=== PATIENT | female | born 1960 | race Caucasian/White ===

== ENCOUNTER 2024-10-11 17:51 | Emergency (ER) | payer BC, SELFPAY ==
[2024-10-11 17:51] VITALS: BMI 28.2
[2024-10-11 17:54] VITALS: BP 189/102
[2024-10-11 18:16] LABS: Hematocrit 39.3 % (37.0-47.0); Hemoglobin 13.3 g/dL (12.0-16.0); Mean Corp Hgb Conc. 33.8 g/dL (33.0-37.0); Mean Corpuscular Volume 87.7 fL (81.0-99.0); Nucleated Red Blood Cells % 0 %; Platelet Count 295 10^3/uL (130-400); Red Cell Dist. Width 12.2 % (11.5-14.5)
[2024-10-11 18:30] LABS: ALT (SGPT) 19 U/L (0-35); AST (SGOT) 22 U/L (14-36); Albumin 4.8 g/dl (3.5-5.0); Alkaline Phosphatase 79 U/L (38-126); Blood Urea Nitrogen 10 mg/dl (7-17); Calcium 9.2 mg/dl (8.4-10.2); Carbon Dioxide 25 mmol/L (22-30); Chloride 106 mmol/L (98-107); Glucose 129 mg/dl (70-99); Lipase 138 U/L (23-300); Potassium 4.1 mmol/L (3.5-5.1); Sodium 137 mmol/L (135-145); Total Protein 7.5 g/dl (6.3-8.2); eGFR > 60.00
[2024-10-11 19:34] VITALS: BP 187/85
[2024-10-11 19:45] LABS: Urine Character Clear (Clear)
--- NOTE | 2024-10-11 19:50 | ED.GENMED ---
History of Present Illness
General
Chief Complaint: Abdominal Pain
Source: patient
Exam Limitations: none
Time Seen by Provider: 10/11/24 19:31
Nursing documentation reviewed up to this point in time: agreed with
History of Present Illness
History of Present Illness:
The patient is a pleasant 64 yr old woman who complains of right sided abdominal pain. Pt reports she noticed it around 9:30am today. pain is described as waxing and waning and associated with nausea. Patient had a normal BM today
Past History
Past History
ED Past Medical History: HTN, Hypothyroidism and Other (ovarian cysts)
ED Past Surgical History: Other (ovarian cyst removal)
Social History
Tobacco: Non-smoker
Personal:
Living: with family
Employment: Employed
Family History
Family History: Other
Review of Systems
Review of Systems
Allergies reviewed?: Yes
All Other Systems: ROS reviewed and negative except as documented in HPI and ROS
Constitutional: Reports no symptoms
EENT: Reports no symptoms
Respiratory: Reports no symptoms
Cardiac: Reports no symptoms
ABD/GI: Reports abdominal pain, nausea and anorexia
: Reports no symptoms
Musculoskeletal: Reports no symptoms
Skin: Reports no symptoms
Neurological: Reports no symptoms
Endocrine: Reports no symptoms
Hematologic/Lymphatic: Reports no symptoms
Psychiatric: Reports no symptoms
Phy Exam
General Physical Exam
General Presentation: well appearing
ENT Exam
ENT Exam: neck supple
Eye Exam
Eye Exam: PERRL
Cardiovascular Exam
Cardiovascular Exam: regular rate/rhythm
Pulmonary Exam
Pulmonary Exam: lungs clear
Gastrointestinal Exam
Gastrointestinal Exam: normal bowel sounds and other (mild R mid and lower R ab tenderness. no guarding. nondistended and soft)
Neurological Exam
Neurological Exam: alert and oriented x3
Musculoskeletal Exam
Musculoskeletal Exam: full ROM
Skin Exam
Skin Exam: normal color
Psychiatric Exam
Psychiatric Exam: normal mood/affect
Course
Orders/Labs/Results
Orders:
Orders
10/11/24 18:05
Complete Blood Count/With Diff Urgent
Comprehensive Metabolic Panel Urgent
Lipase Urgent
10/11/24 19:40
Urinalysis Reflex To Culture Urgent
Date Specimen was Collected: 10/11/24
Time Specimen was Collected: 19:37
Urine Microscopic Reflex Cult Urgent
Urine Culture Urgent
LUCHO Source: U
Specimen Description:
Date Specimen was Collected: 10/11/24
Time Specimen was Collected: 19:37
10/11/24 19:50
CT Abd/pelvis W Iv Cont Urgent
Comment:
Reason For Exam: R sided abdominal pain
10/11/24 21:27
Amoxicillin 875 mg/Clav 125 mg [Augmentin 875 mg/125 mg] 1 tablet PO NOW STA
Nursing to Place Non Medication Order As Directed
Physician Order: please repeat Blood pressure
10/11/24 21:29
Ketorolac [Toradol] 30 mg IV NOW STA
Abnormal Lab Results
10/11/24 10/11/24
18:05 19:40
Absolute Neuts (auto) 7.5 H 10^3/uL
(1.4-6.5)
Absolute Lymphs (auto) 1.0 L 10^3/uL
(1.2-3.4)
Neutrophils % 83.4 H %
(42.2-75.2)
Lymphocytes % 11.3 L %
(20.5-51.1)
Glucose 129 H mg/dl
(70-99)
Ur Occult Blood Reflex 2+ A
(Negative)
Leukocyte Esterase Rfl 3+ A
(Negative)
Urine RBC 3-6 A /HPF
(0-2)
Urine WBC (Reflex) 16-20 A /HPF
(0-5)
Urine Bacteria (Reflex) Few A
(Negative)
Urine Albumin (Reflex) 1+ A
(Neg - Trace)
10/11/24 18:05
10/11/24 18:05
Vital Signs
Initial and Last Documented VS:
Initial Vital Signs
Temp Pulse Resp BP Pulse Ox
98.4 F 95 18 189/102 97
10/11/24 17:54 10/11/24 17:54 10/11/24 17:54 10/11/24 17:54 10/11/24 17:54
Last Documented Vital Signs
Temp Pulse Resp BP Pulse Ox
98.2 F 76 16 144/87 99
10/11/24 20:00 10/11/24 21:36 10/11/24 21:36 10/11/24 21:36 10/11/24 21:36
MDM/Problems Addressed
Differential Diagnosis Includes:
acute appendictis, acute cholecystitis, acute diverticulitis
MDM/Problems Addressed:
pt presents with acute ab pain
Chronic conditions affecting care: HTN
Acute Exacerbation and/or Progression of Chronic Illness:
pt is hypertensive likely due to anxiety. she reports she feels anxious. she has no signs of stroke nor headache. she has no CP or SOB
Acute Exacerbation and/or Progression of Chronic Illness: HTN
*Radiology
Radiology exam reviewed: radiology read reviewed
*Pulse Oximetry
SaO2: 96
Oxygen Mode of Delivery: Room air
Patient hypoxic: no
*EKG
Interpreted by ED Provider?: NA
*Employment Interviewer Interpretation
Rate: Employment Interviewer- N/A
*Critical Care Note
Total Time (30-74mins, 75-104mins- exclusive of procedures): Not Applicable
Data Reviewed
Review of Other/Old Records Reveals: Radiology Studies (pelvic US 2009 does not show any sizeable ovarian cysts)
Source: patient
Patient Management
Social determinants of health affecting care: Living situation and Strong social support
Escalation/DeEscalation of care consider admission/obs:
Given patient's ongoing right sided abdominal tenderness and pain, decision made to treat patient for possible infectious colitis with Augmentin. Additionally, patient encouraged to follow-up with her primary care in about 1 week. There is still
no sign of fever or peritonitis. Patient appears with very well. Overall, patient reports that her pain is better than earlier.
ED Attending Note
-
Portions of this chart may have been created with voice recognition software.� Occasional wrong word or��sound alike� substitutions may have occurred due to the inherent limitations of voice recognition software.
Discharge Plan
Departure
Patient Disposition: Home (Routine Discharge)
Date of Disposition: 10/11/24
Time of Disposition: 21:27
Patient with high blood pressure during this ER visit?: Yes
Condition: Good
Covid-19: Not Applicable
Discharge Problem:
Colitis
Instructions: Colitis, BLOOD PRESSURE
Prescriptions:
New
amoxicillin-pot clavulanate 875-125 mg tablet
1 tab PO BID Qty: 13 0RF
Referrals:
UNKNOWN - PT DOES,NOT KNOW [Unknown Provider]
Activity Restrictions/Additional Instructions:
Please follow-up with your primary care doctor in about 1 week
Interventions
Interventions:
*Risk Screen - Suicide Last Done: 10/11/24 17:54
*General Assessment Last Done: 10/11/24 17:54
*Neglect/Abuse Screening Last Done: 10/11/24 17:54
*ED- Fall Risk Assessment Last Done: 10/11/24 19:36
*Nursing Disposition Last Done: 10/11/24 21:36
PM-[id number]-Hkindzgbqd Assessment Last Done: 10/11/24 19:36
Discharge Date and Time
Discharge Date/Time: 10/11/24 21:39
Print Language: BELARUSIAN
[2024-10-11 19:59] LABS: Urine White Cell 16-20 /HPF (0-5)
[2024-10-11] MEDS: TORADOL 30 MG IV (21:33)
[2024-10-11] MEDS: AUGMENTIN 875 MG/125 MG 1 TABLET PO (21:33)
[2024-10-11 21:36] VITALS: BP 144/87
== END 2024-10-11 21:39 | disposition home or self-care (01) ==
LOC: EMR 17:51
PROVIDERS: Emergency Medicine; EMERGENCY PHYSICIAN Emergency Medicine; FAMILY PHYSICIAN Family Medicine
DX: K52.9 Noninfective gastroenteritis and colitis, unspecified (principal); I10 Essential (primary) hypertension; E03.9 Hypothyroidism, unspecified
CPT/HCPCS: 99284; 96374; 74177; 80053; 81003; 81015; 83690; 85025; 87086; Q9967